=== PATIENT | male | born 1980 | race Caucasian/White ===

== ENCOUNTER → 2018-05-06 | Outpatient (REF) | payer OTHER | LOC: M LAB REF 10:39 | DX: K12.1 Other forms of stomatitis (principal) | CPT/HCPCS: 87070 ==

== ENCOUNTER → 2021-02-25 | Outpatient (REF) | payer OTHER | LOC: M WUC 11:15 | PROVIDERS: ATTEND Physician Assistant | DX: R30.0 Dysuria (principal) ==

== ENCOUNTER → 2021-02-28 | Outpatient (CLI) | payer OTHER, SELFPAY ==
--- NOTE | 2021-02-28 15:43 | REP ---
INDICATION: DYSURIA. COMPARISON: None. TECHNIQUE: AP view abdomen and pelvis. FINDINGS: Moderate fecal material seen throughout the colon. There is no evidence of small bowel obstruction. No abnormal calcifications are seen. Visualized osseous structures are unremarkable. IMPRESSION: Moderate fecal retention. No evidence of small bowel obstruction. No abnormal calcifications. <Electronically signed by Dave Sen > 02/28/21 [id number]
[2021-02-28 19:50] LABS: BASO # 0.1 10^3/uL (0.0-0.2); BASO % 0.6 % (0.0-1.0); EOS # 0.2 10^3/uL (0.0-0.5); EOS % 1.9 % (0.0-3.0); HEMATOCRIT 44.6 % (42.0-52.0); HEMOGLOBIN 14.8 g/dl (13.5-17.5); LYMPH # 1.1 10^3/uL (1.5-5.0); LYMPH % 10.1 % (24.0-44.0); MEAN CORPUSCULAR HEMOGLOBIN 29.7 pg (27.0-33.0); MEAN CORPUSCULAR HGB CONC 33.2 g/dl (32.0-36.5); MEAN CORPUSCULAR VOLUME 89.4 fl (80.0-96.0); MONO % 9.2 % (2.0-8.0); NEUTROPHILS # 8.7 10^3/uL (1.5-8.5); NEUTROPHILS % 77.8 % (36.0-66.0); PLATELET COUNT, AUTOMATED 234 10^3/uL (150-450); RED BLOOD COUNT 4.99 10^6/uL (4.30-6.10); WHITE BLOOD COUNT 11.1 10^3/uL (4.0-10.0)
[2021-02-28 20:00] LABS: ALBUMIN 4.1 GM/DL (3.2-5.2); ALT/SGPT 18 U/L (12-78); BILIRUBIN,TOTAL 1.2 MG/DL (0.2-1.0); BLOOD UREA NITROGEN 8 MG/DL (7-18); CALCIUM LEVEL 9.1 MG/DL (8.5-10.1); CARBON DIOXIDE LEVEL 32 MEQ/L (21-32); CHLORIDE LEVEL 103 MEQ/L (98-107); CREATININE FOR GFR 0.95 MG/DL (0.70-1.30); GLOMERULAR FILTRATION RATE > 60.0 (>60); GLUCOSE, FASTING 101 MG/DL (70-100); POTASSIUM SERUM 4.4 MEQ/L (3.5-5.1); SODIUM LEVEL 140 MEQ/L (136-145); TOTAL PROTEIN 7.8 GM/DL (6.4-8.2)
== END ==
LOC: M WUC 14:59
PROVIDERS: ATTEND Physician Assistant
DX: R30.0 Dysuria (principal)

== ENCOUNTER → 2021-04-13 | Outpatient (REF) | payer SELFPAY | LOC: M WUC 19:49 | PROVIDERS: ATTEND Physician Assistant | DX: R30.0 Dysuria (principal) ==

== ENCOUNTER → 2021-05-13 | Outpatient (REF) | payer OTHER ==
[2021-05-13 12:27] LABS: APPEARANCE, URINE CLEAR (CLEAR); BACTERIA, URINE AUTO NEGATIVE (NEGATIVE); BILIRUBIN, URINE AUTO NEGATIVE (NEGATIVE); BLOOD, URINE BLOOD NEGATIVE (NEGATIVE); COLOR, URINE YELLOW (YELLOW); GLUCOSE, URINE (UA) AUTO NEGATIVE (NEGATIVE); KETONE, URINE AUTO NEGATIVE (NEGATIVE); LEUKOCYTE ESTERASE, URINE AUTO NEGATIVE (NEGATIVE); MUCUS, URINE SMALL (NEGATIVE); NITRITE, URINE AUTO NEGATIVE (NEGATIVE); PROTEIN, URINE AUTO NEGATIVE (NEGATIVE); RBC, URINE AUTO 1 /HPF (0-3); SPECIFIC GRAVITY URINE AUTO 1.024 (1.002-1.035); SQUAMOUS EPITHELIAL CELL UR AU 0 /HPF (0-6); UROBILINOGEN, URINE AUTO 0.2 mg/dL (0.0-2.0); WBC, URINE AUTO 1 /HPF (0-3)
== END ==
LOC: M SMT 11:48
PROVIDERS: ATTEND Urology
DX: N30.01 Acute cystitis with hematuria (principal)

== ENCOUNTER → 2021-05-23 | Outpatient (CLI) | payer OTHER ==
[~2021-05-23] MED LIST: BACT800T5 PO; OXYB5TAB10 PO; PYRI1TAB5 PO
== END ==
LOC: M RAD 11:13
PROVIDERS: ATTEND Urology
DX: N30.01 Acute cystitis with hematuria (principal)

== ENCOUNTER → 2021-05-28 | Outpatient (CLI) | payer OTHER ==
[2021-05-28 13:54] LABS: HEMATOCRIT 45.1 % (42.0-52.0); MEAN CORPUSCULAR HEMOGLOBIN 29.7 pg (27.0-33.0); MEAN CORPUSCULAR HGB CONC 33.3 g/dl (32.0-36.5); MEAN CORPUSCULAR VOLUME 89.3 fl (80.0-96.0); PLATELET COUNT, AUTOMATED 189 10^3/uL (150-450); RED BLOOD COUNT 5.05 10^6/uL (4.30-6.10); WHITE BLOOD COUNT 4.6 10^3/uL (4.0-10.0)
[2021-05-28 16:05] LABS: GC DNA AMPLIFICATION NEGATIVE (NEGATIVE)
== END ==
LOC: M PLALAB 08:33
PROVIDERS: ATTEND Urology
DX: R31.0 Gross hematuria (principal)

== ENCOUNTER → 2021-06-03 | Outpatient (CLI) | payer OTHER ==
[~2021-06-03] MED LIST changes: -BACT800T5 PO; +ISOVUE-370 76% 100ML VIAL As Ordered ONE; -OXYB5TAB10 PO; -PYRI1TAB5 PO
--- NOTE | 2021-06-03 10:55 | REP ---
INDICATION: DYSURIA. Possible nephrolithiasis. COMPARISON: Comparison sonography May 23, 2021. TECHNIQUE: Pre contrast and dual phase post intravenous contrast injected CT abdomen and pelvis acquisitions are acquired. 3 mm axial images are re-formatted. Coronal and sagittal MPR images are provided. The contrast dose is 100 mL of Isovue 370. FINDINGS: Preliminary digital managed care liaison radiograph is unremarkable. Normal bowel gas pattern. The lung bases are clear on axial CT images. There is no evidence of pleural effusion or upper abdominal ascites. The liver and the spleen are normal in size and homogeneous in texture on pre and postcontrast CT acquisitions. Normal adrenal glands are observed. No abnormality is noted in the pancreas or the gallbladder. There is no evidence of hydronephrosis on either side. There is an intrarenal calculus in the upper pole of the right kidney measuring 3 mm in greatest diameter. there is a 2 mm intrarenal calculus in the lower pole of the right kidney. No intrarenal calculi are seen in the left kidney. No ureteral stone or bladder stone is seen. There is some bladder wall thickening along the right lateral and posterior bladder wall. There is a cystic lesion in the right lower pelvis adjacent to the posterolateral wall of the urinary bladder on the right side. This cyst measures 2.4 x 3.0 by 2.2 cm. The it is most compatible with a bladder diverticulum. The ureters describe a normal course to the urinary bladder and the right ureter passes into the bladder superior and medial to this cyst. Prostate the prostate is unremarkable. Seminal vesicles are symmetric. The bladder is otherwise unremarkable. Delayed scan images show no filling defect in the upper tract collecting system on either side and unremarkable ureters. IMPRESSION: 1. Intrarenal nephrolithiasis with 2 calculi in the intrarenal collecting system of the right kidney. No hydronephrosis. 2. Right-sided perivesical 3 cm in greatest diameter, most compatible with bladder diverticulum. There is moderate thickening of the bladder wall posteriorly and on the right side of the urinary bladder. <Electronically signed by Marcello Zuniga > 06/03/21 [id number]
== END ==
LOC: M RAD 07:57
PROVIDERS: ATTEND Urology
DX: R30.0 Dysuria (principal)
CPT/HCPCS: 74178; Q9967

== ENCOUNTER → 2021-06-24 | Outpatient (REF) | payer OTHER ==
[2021-06-24 13:43] LABS: APPEARANCE, URINE CLEAR (CLEAR); BACTERIA, URINE AUTO NEGATIVE (NEGATIVE); BILIRUBIN, URINE AUTO NEGATIVE (NEGATIVE); BLOOD, URINE BLOOD NEGATIVE (NEGATIVE); COLOR, URINE YELLOW (YELLOW); GLUCOSE, URINE (UA) AUTO NEGATIVE (NEGATIVE); KETONE, URINE AUTO NEGATIVE (NEGATIVE); LEUKOCYTE ESTERASE, URINE AUTO NEGATIVE (NEGATIVE); MUCUS, URINE SMALL (NEGATIVE); NITRITE, URINE AUTO NEGATIVE (NEGATIVE); PROTEIN, URINE AUTO NEGATIVE (NEGATIVE); RBC, URINE AUTO 0 /HPF (0-3); SPECIFIC GRAVITY URINE AUTO 1.019 (1.002-1.035); SQUAMOUS EPITHELIAL CELL UR AU 0 /HPF (0-6); WBC, URINE AUTO 0 /HPF (0-3)
== END ==
LOC: M SMT 12:52
PROVIDERS: ATTEND Urology
DX: R30.0 Dysuria (principal)

== ENCOUNTER → 2021-07-09 | Outpatient (CLI) | payer OTHER ==
[2021-07-09 10:54] LABS: HEMATOCRIT 41.5 % (42.0-52.0); HEMOGLOBIN 14.1 g/dl (13.5-17.5); MEAN CORPUSCULAR HEMOGLOBIN 29.6 pg (27.0-33.0); PLATELET COUNT, AUTOMATED 238 10^3/uL (150-450); RED BLOOD COUNT 4.77 10^6/uL (4.30-6.10); WHITE BLOOD COUNT 5.4 10^3/uL (4.0-10.0)
--- NOTE | 2021-07-09 11:06 | REP ---
INDICATION: DYSURIA. COMPARISON: 02/21/2010 TECHNIQUE: PA and lateral FINDINGS: There is a patchy opacity in the right lower lobe. This represents a change from the prior exam. The lung manzo are otherwise clear. The heart is not enlarged. The pleural angles are sharp. The osseous structures stable and intact. IMPRESSION: New patchy opacity in the right lower lobe. Follow-up is recommended. <Electronically signed by Toni Mcgrath > 07/09/21 [id number]
[2021-07-09 11:17] LABS: ALBUMIN 3.4 GM/DL (3.2-5.2); ALT/SGPT 19 U/L (12-78); BLOOD UREA NITROGEN 12 MG/DL (7-18); CARBON DIOXIDE LEVEL 31 MEQ/L (21-32); CHLORIDE LEVEL 104 MEQ/L (98-107); CREATININE FOR GFR 0.85 MG/DL (0.70-1.30); GLOMERULAR FILTRATION RATE > 60.0 (>60); GLUCOSE, FASTING 97 MG/DL (70-100); POTASSIUM SERUM 3.7 MEQ/L (3.5-5.1); SODIUM LEVEL 139 MEQ/L (136-145); TOTAL PROTEIN 7.5 GM/DL (6.4-8.2)
== END ==
LOC: M WUC 08:19
PROVIDERS: ATTEND Urology
DX: R30.0 Dysuria (principal); M32.9 Systemic lupus erythematosus, unspecified

== ENCOUNTER → 2021-07-11 | Outpatient (CLI) | payer OTHER | LOC: M LABSMTC 09:26 | PROVIDERS: ATTEND Anesthesiology | DX: Z01.818 Encounter for other preprocedural examination (principal); Z11.52 Encounter for screening for COVID-19 ==

== ENCOUNTER → 2021-07-11 | Outpatient (CLI) | payer OTHER ==
--- NOTE | 2021-07-12 20:06 | ECGEPIP ---
[facility] Test Date: 2021-07-11 Pat Name: ESME HARMON Department: Room: - Gender: Male Erp Pm: dante : 1980 Requested By: TAO Em Order Number: [id number] Reading MD: Laney Panda Measurements Intervals [place] Rate: 65 P: 46 AR: 164 QRS: 69 QRSD: 88 T: 38 QT: 394 QTc: 409 Interpretive Statements Normal sinus rhythm No prior Electronically Signed on 07-12-2021 20:06:13 EDT by Laney Panda
== END ==
LOC: M EKG 07:35
PROVIDERS: ATTEND Urology
DX: R30.0 Dysuria (principal)

== ENCOUNTER → 2021-08-11 | Outpatient (CLI) | payer OTHER ==
[~2021-08-11] MED LIST changes: +BACT800T5 PO; -ISOVUE-370 76% 100ML VIAL As Ordered ONE; +OXYB5TAB10 PO; +PYRI1TAB5 PO
[2021-08-11 09:55] LABS: APPEARANCE, URINE CLEAR (CLEAR); BACTERIA, URINE AUTO NEGATIVE (NEGATIVE); BILIRUBIN, URINE AUTO NEGATIVE (NEGATIVE); BLOOD, URINE BLOOD NEGATIVE (NEGATIVE); COLOR, URINE YELLOW (YELLOW); GLUCOSE, URINE (UA) AUTO NEGATIVE (NEGATIVE); KETONE, URINE AUTO NEGATIVE (NEGATIVE); LEUKOCYTE ESTERASE, URINE AUTO NEGATIVE (NEGATIVE); MUCUS, URINE SMALL (NEGATIVE); NITRITE, URINE AUTO NEGATIVE (NEGATIVE); PROTEIN, URINE AUTO NEGATIVE (NEGATIVE); RBC, URINE AUTO 0 /HPF (0-3); SPECIFIC GRAVITY URINE AUTO 1.026 (1.002-1.035); SQUAMOUS EPITHELIAL CELL UR AU 0 /HPF (0-6); WBC, URINE AUTO 1 /HPF (0-3)
[2021-08-11 09:56] LABS: HEMATOCRIT 44.7 % (42.0-52.0); MEAN CORPUSCULAR HEMOGLOBIN 29.9 pg (27.0-33.0); MEAN CORPUSCULAR HGB CONC 33.6 g/dl (32.0-36.5); MEAN CORPUSCULAR VOLUME 89.2 fl (80.0-96.0); PLATELET COUNT, AUTOMATED 179 10^3/uL (150-450); RED BLOOD COUNT 5.01 10^6/uL (4.30-6.10); WHITE BLOOD COUNT 5.2 10^3/uL (4.0-10.0)
[2021-08-11 10:55] LABS: ALBUMIN 3.9 GM/DL (3.2-5.2); ALT/SGPT 22 U/L (12-78); BILIRUBIN,TOTAL 0.9 MG/DL (0.2-1.0); BLOOD UREA NITROGEN 14 MG/DL (7-18); CALCIUM LEVEL 9.3 MG/DL (8.5-10.1); CARBON DIOXIDE LEVEL 29 MEQ/L (21-32); CHLORIDE LEVEL 105 MEQ/L (98-107); CREATININE FOR GFR 0.86 MG/DL (0.70-1.30); GLOMERULAR FILTRATION RATE > 60.0 (>60); GLUCOSE, FASTING 102 MG/DL (70-100); POTASSIUM SERUM 4.3 MEQ/L (3.5-5.1); SODIUM LEVEL 141 MEQ/L (136-145)
== END ==
LOC: M WUC 08:21
PROVIDERS: ATTEND Urology
DX: R30.0 Dysuria (principal); N32.9 Bladder disorder, unspecified

== ENCOUNTER → 2021-08-13 | Outpatient (CLI) | payer OTHER | LOC: M LABSMTC 09:23 | PROVIDERS: ATTEND Anesthesiology | DX: Z01.818 Encounter for other preprocedural examination (principal); Z11.52 Encounter for screening for COVID-19 ==

== ENCOUNTER 2021-08-18 07:20 | Day surgery (SDC) | payer OTHER ==
[~2021-08-18] VITALS: Ht 172.7 cm; Wt 68.4 kg
[~2021-08-18 07:20] MED LIST changes: -BACT800T5 PO; +CIPROFLOXACIN 400 MG in IV 1 EA IV ONE; +LR 1,000 ML IV ONE; -OXYB5TAB10 PO; -PYRI1TAB5 PO
--- OUTSIDE RECORDS SUMMARY | 2021-08-18 07:23 | CCD ---
Author Author [facility] Organization [facility] Address Unknown Phone Unavailable Care Team Providers Care Senior Qa Automation Engineer Name Role Phone IRENA, Carrie BHATT PA Unavailable Unavailable LETTIERE, A MILLER PA Unavailable Unavailable LETTIERE, A MILLER PA Unavailable Unavailable LETTIERE, A MILLER PA Unavailable Unavailable LETTIERE, A MILLER PA Unavailable Unavailable LETTIERE, A MILLER PA Unavailable Unavailable LETTIERE, A MILLER PA Unavailable Unavailable LETTIERE, A MILLER PA Unavailable Unavailable LETTIERE, A MILLER PA Unavailable Unavailable LETTIERE, A MILLER PA Unavailable Unavailable LETTIERE, A MILLER PA Unavailable Unavailable LETTIERE, A MILLER PA Unavailable Unavailable LETTIERE, A MILLER PA Unavailable Unavailable LETTIERE, A MILLER PA Unavailable Unavailable LETTIERE, A MILLER PA Unavailable Unavailable LETTIERE, A MILLER PA Unavailable Unavailable LETTIERE, A MILLER PA Unavailable Unavailable LETTIERE, A MILLER PA Unavailable Unavailable LETTIERE, A MILLER PA Unavailable Unavailable LETTIERE, A MILLER PA Unavailable Unavailable LETTIERE, A MILLER PA Unavailable Unavailable LETTIERE, A MILLER PA Unavailable Unavailable LETTIERE, A MILLER PA Unavailable Unavailable LETTIERE, A MILLER PA Unavailable Unavailable LETTIERE, A MILLER PA Unavailable Unavailable LETTIERE, A MILLER PA Unavailable Unavailable LETTIERE, A MILLER PA Unavailable Unavailable LETTIERE, A MILLER PA Unavailable Unavailable LETTIERE, A MILLER PA Unavailable Unavailable LETTIERE, A MILLER PA Unavailable Unavailable LETTIERE, A MILLER PA Unavailable Unavailable Re-disclosure Warning The records that you are about to access may contain information from federally-assisted alcohol or drug abuse programs. If such information is present, then the following federally mandated warning applies: This information has been disclosed to you from records protected by federal confidentiality rules (42 CFR part 2). The federal rules prohibit you from making any further disclosure of this information unless further disclosure is expressly permitted by the written consent of the person to whom it pertains or as otherwise permitted by 42 CFR part 2. A general authorization for the release of medical or other information is NOT sufficient for this purpose. The Federal rules restrict any use of the information to criminally investigate or prosecute any alcohol or drug abuse patient.The records that you are about to access may contain highly sensitive health information, the redisclosure of which is protected by Article 27-F of the [facility] Public Health law. If you continue you may have access to information: Regarding HIV / AIDS; Provided by facilities licensed or operated by the [facility] Office of Mental Health; or Provided by the [facility] Office for People With Developmental Disabilities. If such information is present, then the following [facility] mandated warning applies: This information has been disclosed to you from confidential records which are protected by state law. State law prohibits you from making any further disclosure of this information without the specific written consent of the person to whom it pertains, or as otherwise permitted by law. Any unauthorized further disclosure in violation of state law may result in a fine or skilled nursing sentence or both. A general authorization for the release of medical or other information is NOT sufficient authorization for further disc losure. Family History Family Member Name Family Member Gender Family Member Status Date o f Status Description Data Source(s) Unknown Unknown Problem MEDENT ([facility], [facility]) Encounters Encounter Providers Location Date Indications Data Source(s ) Unknown [address] [facility] [place] [address] 08/04/2021 12:00:00 AM EST eCW1 ([facility]) Unknown [address] [facility] [place] [address] 07/22/2021 12:00:00 AM EST eCW1 ([facility]) Unknown [address] [facility] [place] [address] 06/16/2021 12:00:00 AM EDT eCW1 ([facility]) Outpatient [address] [facility] [address] [address] 05/28/2021 12:00:00 AM EDT eCW1 ([facility]) Outpatient [address] [facility] [address] 05/13/2021 12:00:00 AM EDT eCW1 ([facility]) Outpatient Attender: MILLER angeles 04/13/2021 10:05:00 AM EDT MEDENT ([facility], [facility]) Outpatient Attender: MILLER Galvan Prim karthik 02/28/2021 02:35:00 PM EDT MEDENT ([facility]) Outpatient Attender: MILLER angeles 02/25/2021 09:30:00 AM EDT MEDENT ([facility]) Medications Medication Brand Name Start Date Product Form Dose Route Admi nistrative Instructions Pharmacy Instructions Status Indications Reaction Description Data Source(s) No Active Medications 04/13/2021 12:00:00 AM EDT active MEDENT ([facility]) POLYETHYLENE GLYCOL 3350 142 MG/ML Oral Solution [Miralax] M iralax 02/28/2021 12:00:00 AM EDT completed MEDENT ([facility]) Tamsulosin hydrochloride 0.4 MG Oral Capsule Tamsulosin HCL 02/28/2021 12:00:00 AM EDT completed MEDENT ([facility]) NITROFURANTOIN, MACROCRYSTALS 25 MG / Ni trofurantoin, Monohydrate 75 MG Oral Capsule Nitrofurantoin Monohyd Macro 02/25/2021 12:00:00 AM EDT ORAL completed MEDENT ([facility]) Phenazopyridine hydrochloride 200 MG Delayed Release O ral Tablet Phenazopyridine HCL 02/25/2021 12:00:00 AM EDT ORAL completed MEDENT ([facility]) Insurance Providers Payer name Policy type / Coverage type Policy ID Covered constitution party ID Covered constitution party's relationship to estrada Policy Estrada Plan Information [facility] [id number] SP [id number] [facility] [id number] SP [id number] [facility] [id number] SP [id number] [facility] [id number] SP [id number] SELF PAY SP SELF PAY ONLY 1 SP 1 Problems, Conditions, and Diagnoses Code Display Name Description Problem Type Effective Dates Data Source(s) N32.3 [id number] Bladder diverticulum Problem 06/24/2021 12:0 0:00 AM EDT eCW1 ([facility]) N32.9 [id number] Lesion of bladder Problem 06/24/2021 12:00:0 0 AM EDT eCW1 ([facility]) N20.0 [id number] Kidney stones Problem 05/29/2021 12:00:00 AM EDT eCW1 ([facility]) Surgeries/Procedures Procedure Description Date Indications Data Source(s) OFFICE OUTPATIENT VISIT 15 MINUTES 04/13/2021 12:00:00 AM EDT MEDENT ([facility], [facility]) OFFICE OUTPATIENT VISIT 15 MINUTES 02/28/2021 12:00:00 AM EDT MEDENT ([facility], [facility]) OFFICE OUTPATIENT VISIT 15 MINUTES 02/25/2021 12:00:00 AM EDT MEDENT ([facility], [facility]) Results ID Date Data Source [id number] 08/13/2021 10:30:00 AM EST [facility] Name Value Range Interpretation Code Description Data Marj rce(s) Supporting Document(s) SARS-CoV-2 (COVID-19) RNA [Presence] in Respiratory specimen by MAGDIEL with probe detection Not Detected [facility] This lab was ordered by [facility] and reported by [employer]. ID Date Data Source CHLAMYDIA, GC and TRICH AMP 05/28/2021 12:00:00 AM EDT eCW1 ([facility]) Name Value Range Interpretation Code Description Data Marj rce(s) Supporting Document(s) NOT DETECTED NEGATIVE Trichomonas vaginalis ( AMP) eCW1 ([facility]) ID Date Data Source CBC - Complete Blood Count 05/28/2021 12:00:00 AM EDT eCW1 ( [facility]) Name Value Range Interpretation Code Description Data Marj rce(s) Supporting Document(s) 4.6 4.0-10.0 WHITE BLOOD COUNT eCW1 ([facility]) 5.05 4.30-6.10 RED BLOOD COUNT eCW1 ([facility]) 45.1 42.0-52.0 HEMATOCRIT eCW1 ([facility]) 15.0 13.5-17.5 HEMOGLOBIN eCW1 ([facility]) 33.3 32.0-36.5 MEAN CORPUSCULAR HGB CONC eCW1 ([facility]) 29.7 27.0-33.0 MEAN CORPUSCULAR HEMOGLOB IN eCW1 ([facility]) 89.3 80.0-96.0 MEAN CORPUSCULAR VOLUME e CW1 ([facility]) 189 150-450 PLATELET COUNT, AUTOMATED eCW1 ([facility]) 12.7 11.5-14.5 RED CELL DISTRIBUTION WID TH eCW1 ([facility]) ID Date Data Source BLADDER U/S 05/23/2021 12:00:00 AM EDT eCW1 ([facility]) Name Value Range Interpretation Code Description Data Marj rce(s) Supporting Document(s) BLADDER U/S eCW1 (Replaced by [facility]) ID Date Data Source RENAL ULTRASOUND 05/23/2021 12:00:00 AM EDT eCW1 ([facility]) Name Value Range Interpretation Code Description Data Marj rce(s) Supporting Document(s) RENAL ULTRASOUND eCW1 ([facility]) ID Date Data Source URINE CULTURE 05/13/2021 12:00:00 AM EDT eCW1 ([facility]) Name Value Range Interpretation Code Description Data Marj rce(s) Supporting Document(s) URINE CULTURE eCW1 ([facility]) ID Date Data Source UA URINALYSIS 05/13/2021 12:00:00 AM EDT eCW1 ([facility]) Name Value Range Interpretation Code Description Data Marj rce(s) Supporting Document(s) UA URINALYSIS eCW1 ([facility]) ID Date Data Source [id number] 04/13/2021 10:26:00 AM EDT MEDENT ([facility], [facility]) Name Value Range Interpretation Code Description Data Marj rce(s) Supporting Document(s) Bacteria identified in Urine by Culture Laboratory test result MEDENT ([facility], [facility]) FULL REPORT IN LAB NOTES (eCW and Medent ). NO GROWTH ID Date Data Source [id number] 02/28/2021 03:13:00 PM EDT MEDENT ([facility], [facility]) Name Value Range Interpretation Code Description Data Marj rce(s) Supporting Document(s) Glucose, Fasting 101 mg/dL 70-100 MEDENT ([facility], [facility]) Creatinine For GFR 0.95 mg/dL 0.70-1.30 MEDENT ([facility], [facility]) Blood Urea Nitrogen 8 mg/dL 7-18 MEDENT ([facility], [facility]) Sodium Level 140 meq/L 136-145 MEDENT ([facility], [facility]) Glomerular Filtration Rate Laboratory test result MEDENT ([facility]) <content>Units are mL/min/1.73 m2</content>
<content></content>
<content>Chronic Kidney Disease Staging per NKF:</content>
<content></content>
<content>Stage I & II GFR >=60 Normal to Mildly Decreased</content>
<content>Stage III GFR 30- 59 Moderately Decreased</content>
<content>Stage IV GFR 15-29 Severely Decreased</content>
<content>Stage V GFR <15 Very Little GFR Left</content>
<content>ESRD GFR <15 on MANAGER HEART FAILURE</content>
<content></content> Chloride Level 103 meq/L 98-107 MEDENT ([facility], [facility]) Potassium Serum 4.4 meq/L 3.5-5.1 MEDENT ([facility], [facility]) Testing was performed on a SLIGHTLY hemo lyzed specimen. Suggest recollection of specimen for more accurate test results. Carbon Dioxide Level 32 meq/L 21-32 [facility] ( [facility]) Anion Gap 5 meq/L 8-16 MEDENT ([facility], [facility]) Calcium Level 9.1 mg/dL 8.5-10.1 MEDENT ([facility], [facility]) Ast/Sgot 16 U/L 7-37 MEDENT ([facility], [facility]) Alt/SGPT 18 U/L 12-78 MEDENT ([facility], [facility]) Alkaline Phosphatase 75 U/L 45-117 MEDENT ([facility], [facility]) Bilirubin,Total 1.2 mg/dL 0.2-1.0 MEDENT ([facility], [facility]) Total Protein 7.8 GM/DL 6.4-8.2 MEDENT ([facility], [facility]) Albumin 4.1 GM/DL 3.2-5.2 MEDENT ([facility], [facility]) Albumin/Globulin Ratio 1.1 MEDENT ([facility], [facility]) ID Date Data Source [id number] 02/28/2021 03:13:00 PM EDT MEDENT ([facility]) Name Value Range Interpretation Code Description Data Marj rce(s) Supporting Document(s) Hemoglobin 14.8 g/dL 13.5-17.5 MEDENT ([facility], [facility]) White Blood Count 11.1 10 4.0-10.0 MEDENT ([facility], [facility]) Red Blood Count 4.99 10 4.30-6.10 MEDENT ([facility], [facility]) Hematocrit 44.6 % 42.0-52.0 MEDENT ([facility], [facility]) Mean Corpuscular Volume 89.4 fl 80.0-96.0 M EDENT ([facility], [facility]) Mean Corpuscular HGB Conc 33.2 g/dL 32.0-36.5 MEDENT ([facility], [facility]) Mean Corpuscular Hemoglobin 29.7 pg 27.0-33.0 MEDENT ([facility], [facility]) Platelet Count, Automated 234 10 150-450 MEDENT ([facility], [facility]) Red Cell Distribution Width 11.9 % 11.5-14.5 MEDENT ([facility], [facility]) Neutrophils % 77.8 % 36.0-66.0 MEDENT ([facility], [facility]) Lymph % 10.1 % 24.0-44.0 MEDENT ([facility], [facility]) Eos % 1.9 % 0.0-3.0 MEDENT ([facility], [facility]) [place] % 9.2 % 2.0-8.0 MEDENT ([facility], [facility]) Baso % 0.6 % 0.0-1.0 MEDENT ([facility], [facility]) Neutrophils # 8.7 10 1.5-8.5 MEDENT ([facility], [facility]) Immature Granulocyte % 0.4 % 0-3.0 MEDENT ([facility], [facility]) Nucleated Red Blood Cell % 0.0 % 0-0 MED ENT ([facility], [facility]) Lymph # 1.1 10 1.5-5.0 MEDENT ([facility], [facility]) [place] # 1.0 10 0.0-0.8 MEDENT ([facility], [facility]) Eos # 0.2 10 0.0-0.5 MEDENT ([facility], [facility]) Baso # 0.1 10 0.0-0.2 MEDENT ([facility], [facility]) ID Date Data Source [id number] 02/28/2021 02:45:00 PM EDT MEDENT ([facility], [facility]) Name Value Range Interpretation Code Description Data Marj rce(s) Supporting Document(s) Trichomonas vaginalis rRNA [Presence] in Unspecified specimen by Probe and target amplification method Laboratory test result MEDENT ([facility], [facility]) trich pending 03-04-21 ID Date Data Source [id number] 02/28/2021 02:45:00 PM EDT MEDENT ([facility]) Name Value Range Interpretation Code Description Data Marj rce(s) Supporting Document(s) Bacteria identified in Urine by Culture Laboratory test result MEDENT ([facility]) trich pending 03-04-21 ID Date Data Source [id number] 03/04/2021 04:06:00 PM EDT [facility] Name Value Range Interpretation Code Description Data Marj rce(s) Supporting Document(s) Trich vag by MAGDIEL [facility] TESTS RESULT FLAG UNI TS REF RANGE LAB Trich vag by MAGDIEL Negative (Negative) 01 FLAG LEGEND: L-Low Normal,H-High Normal,LL-Alert Low,HH-Alert High <-Panic Low,>-Panic High,A-Abnormal,AA-Critical Abnormal Performed at:[address] RN [facility] [address] [address] Ruth Blakely MD, ID Date Data Source [id number] 02/25/2021 09:42:00 AM EDT MEDENT ([facility]) Name Value Range Interpretation Code Description Data Marj e(s) Supporting Document(s) Bacteria identified in Urine by Culture Laboratory test result MEDENT ([facility]) FULL REPORT IN LAB NOTES (eCW and Medent ). NO GROWTH CLINICAL SIGNIFICANCE 2 OR MORE ORGANISMS Procedure Social History Code Duration Value Status Description Data Source(s ) Smoking 06/24/2021 12:00:00 AM EDT Never Smoker completed Never S moker eCW1 ([facility]) Smoking 06/24/2021 12:00:00 AM EDT Never Smoker completed Never S moker eCW1 ([facility]) Smoking 05/28/2021 12:00:00 AM EDT Never Smoker completed Never S moker eCW1 ([facility]) Smoking 05/28/2021 12:00:00 AM EDT Never Smoker completed Never S moker eCW1 ([facility]) Smoking 05/28/2021 12:00:00 AM EDT Never Smoker completed Never S moker eCW1 ([facility]) Smoking 04/13/2021 12:00:00 AM EDT Patient has never smoked co mpleted Patient has never smoked MEDENT ([facility], [facility]) Vital Signs ID Date Data Source UNK Name Value Range Interpretation Code Description Data Source(s) Respiratory rate 18 /min 18 /min eCW1 ([facility]) Body weight 155 [lb_av] 155 [lb_av] eCW1 ([facility]) Body temperature 97.5 [degF] 97.5 [degF] eCW1 ( [facility]) Body height 67 [in_i] 67 [in_i] eCW1 ([facility]) Body mass index (BMI) [Ratio] 24.27 kg/m2 24.27 kg/m2 eCW1 ([facility]) Systolic blood pressure 110 mm[Hg] 110 mm[Hg] e CW1 ([facility]) Heart rate 76 /min 76 /min eCW1 ([facility]) Diastolic blood pressure 68 mm[Hg] 68 mm[Hg] eCW1 ([facility]) Diastolic blood pressure 62 mm[Hg] 62 mm[Hg] eCW1 ([facility]) Body weight 150 [lb_av] 150 [lb_av] eCW1 ([facility]) Body weight 68.04 kg 68.04 kg eCW1 ([facility]) Body height 67 [in_i] 67 [in_i] eCW1 ([facility]) Body mass index (BMI) [Ratio] 23.49 kg/m2 23.49 kg/m2 eCW1 ([facility]) Heart rate 78 /min 78 /min eCW1 ([facility]) Respiratory rate 18 /min 18 /min eCW1 ([facility]) Body temperature 97.8 [degF] 97.8 [degF] eCW1 ( [facility]) Systolic blood pressure 102 mm[Hg] 102 mm[Hg] e CW1 ([facility]) Systolic blood pressure 111 mm[Hg] 111 mm[Hg] M EDENT ([facility], [facility]) Diastolic blood pressure 74 mm[Hg] 74 mm[Hg] MEDENT ([facility], [facility]) Heart rate 71 /min 71 /min MEDENT ([facility], [facility]) Respiratory rate 14 /min 14 /min MEDENT ( [facility], [facility]) Oxygen saturation in Arterial blood by Pulse oximetry 99 % 99 % MEDENT ([facility], [facility]) Body temperature 97.8 [degF] 97.8 [degF] MEDENT ([facility], [facility]) Body weight 130.00 [lb_av] 130.00 [lb_av] MEDEN T ([facility], [facility]) Body height 68 [in_i] 68 [in_i] MEDENT ([facility], [facility]) 5'8" Body mass index (BMI) [Ratio] 19.8 kg/m2 19.8 k g/m2 MEDENT ([facility], [facility]) Systolic blood pressure 108 mm[Hg] 108 mm[Hg] M EDENT ([facility], [facility]) Diastolic blood pressure 73 mm[Hg] 73 mm[Hg] MEDENT ([facility], [facility]) Heart rate 83 /min 83 /min MEDENT ([facility]) Respiratory rate 14 /min 14 /min MEDENT ( [facility], [facility]) Oxygen saturation in Arterial blood by Pulse oximetry 98 % 98 % MEDENT ([facility], [facility]) Body temperature 99.1 [degF] 99.1 [degF] MEDENT ([facility], [facility]) Body weight 130.00 [lb_av] 130.00 [lb_av] MEDEN T ([facility], [facility]) Body height 68 [in_i] 68 [in_i] [facility] ([facility], [facility]) 5'8" Body mass index (BMI) [Ratio] 19.8 kg/m2 19.8 k g/m2 MEDENT ([facility], [facility]) Respiratory rate 12 /min 12 /min [facility] ( [facility]) Oxygen saturation in Arterial blood by Pulse oximetry 99 % 99 % [facility] ([facility], [facility]) Systolic blood pressure 108 mm[Hg] 108 mm[Hg] M EDENT ([facility], [facility]) Diastolic blood pressure 75 mm[Hg] 75 mm[Hg] MEDENT ([facility], [facility]) Heart rate 78 /min 78 /min [facility] ([facility], [facility]) Body temperature 97.8 [degF] 97.8 [facility]degF] [facility] Body weight 135.00 [lb_av] 135.00 [lb_av] MEDEN T ([facility], [facility]) Body height 68 [in_i] 68 [in_i] [facility] ([facility], [facility]) 5'8" Body mass index (BMI) [Ratio] 20.5 kg/m2 20.5 k g/m2 [facility] ([facility], [facility])
--- OUTSIDE RECORDS SUMMARY | 2021-08-18 07:23 | CCD ---
Author Author [facility] Organization [facility] Address Unknown Phone Unavailable Care Team Providers Care Metal Mockup Maker Name Role Phone AgnieszkaLiban friedman Unavailable PROBLEMS Type Condition ICD9-CM Code [id number] Code Onset Dates Condition S tatus W/U Status Risk SNOMED Code Notes Problem Kidney stones N20.0 Active confirmed 515507 07 ALLERGIES No Known Allergies ENCOUNTERS from 1980 to 2021-06-05 Encounter Location Date Provider Diagnosis [facility] Urology [address] [phone] [place] [address] May, Liban Gill Dysuria R30.0 ; Gross hematuria R31.0 ; Kidney stones N20.0 and Pelvic mass R19.00 IMMUNIZATIONS No Information SOCIAL HISTORY Tobacco Use: Social History Observation Description Date Details (start date - stop date) Never Smoker Sex Assigned At : Social History Observation Description Sex Assigned At Unknown Language: Question Answer Notes Languages spoken: Chadian Sexual Hx: Question Answer Notes Had sex in the last 12 months (vaginal, oral, or anal)? Yes Have you ever had an STD? No Prevention Strategies discussed: Other with Women only Use protection? No Alcohol Screening: Question Answer Notes Did you have a drink containing alcohol in the past year? Ye s Points 1 Interpretation Negative How often did you have six or more drinks on one occas ion in the past year? Never (0 points) How many drinks did you have on a typica l day when you were drinking in the past year? 1 or 2 (0 points) How often did you have a drink containing alcohol in t he past year? Monthly or less (1 point) Tobacco Use: Question Answer Notes Are you a: never smoker REASON FOR REFERRAL No Information VITAL SIGNS Weight 155 lbs May, Height 67 in May, BMI 24.27 kg/m2 May, Heart Rate 76 /min May, Respiratory Rate 18 /min May, Temperature 97.5 degrees Fahrenheit May, Oximetry 98 May, Blood pressure systolic 110 mm Hg May, Blood pressure diastolic 68 mm Hg May, MEDICATIONS No Known Medications PROCEDURES No Information RESULTS Component Value Reference Range CBC - Complete Blood Count Reviewed date:05/29/2021 11:22:24 Interpretation: Performing Lab:[facility] LABORATORY [address] [address] , ,[place] [address] WHITE BLOOD COUNT 4.6 4.0-10.0 RED BLOOD COUNT 5.05 4.30-6.10 HEMOGLOBIN 15.0 13.5-17.5 HEMATOCRIT 45.1 42.0-52.0 MEAN CORPUSCULAR VOLUME 89.3 80.0-96.0 MEAN CORPUSCULAR HEMOGLOBIN 29.7 27.0-33.0 MEAN CORPUSCULAR HGB CONC 33.3 32.0-36.5 RED CELL DISTRIBUTION WIDTH 12.7 11.5-14.5 PLATELET COUNT, AUTOMATED 189 150-450 CHLAMYDIA, GC and TRICH AMP Reviewed date:05/29/2021 11:22:35 Interpretation: Performing Lab:[facility] LABORATORY [address] [address] , ,[place] [address] Trichomonas vaginalis (AMP) NOT DETECTED NEGATIVE REASON FOR VISIT 2 wk f/u MEDICAL (GENERAL) HISTORY Type Description Date Surgical History No Surgical history information Goals Section No Information Health Concerns No Information MEDICAL EQUIPMENT No Information MENTAL STATUS No Information FUNCTIONAL STATUS No Information ASSESSMENTS Encounter Date Diagnosis Assessment Notes Treatment Notes Treatm ent Clinical Notes May, Dysuria (ICD-10 - R30.0) May, Gross hematuria (ICD-10 - R31.0) May, Kidney stones (ICD-10 - N20.0) May, Pelvic mass (ICD-10 - R19.00) PLAN OF TREATMENT Treatment Notes Test Name Order Date CT Scan : Urogram (Abdomen/Pelvis) 2021-05-28 Next Appt Details Local cystoscopy Reason:Gross hematuria and dysuria Provider Name:Liban Butler Jairo, 2021-06-06 9 08:45:00 AM, [address], , [place], [address], Follow Up:Local cystoscopyGross hematuria and dysuria Insurance Providers Payer Name Payer Address Payer Phone Insured Name Patient Relati onship to Insured Coverage Start Date Coverage End Date [facility] CORPORATE CLAIMS DEPT [address] [facility] [phone] ESME HARMON self
--- OUTSIDE RECORDS SUMMARY | 2021-08-18 07:23 | CCD ---
Author Author [facility] Organization [facility] Address Unknown Phone Unavailable Care Team Providers Care Mobile Health Vehicle Operator Name Role Phone Agnieszkaelder Liban Unavailable PROBLEMS Type Condition ICD9-CM Code [id number] Code Onset Dates Condition S tatus W/U Status Risk SNOMED Code Notes Problem Kidney stones N20.0 Active confirmed 400160 07 ALLERGIES No Known Allergies ENCOUNTERS from 1980 to 2021-06-16 Encounter Location Date Provider Diagnosis [facility] Urology [address] [phone] [place] [address] Jun, Liban Gill IMMUNIZATIONS No Information SOCIAL HISTORY Tobacco Use: Social History Observation Description Date Details (start date - stop date) Never Smoker Sex Assigned At : Social History Observation Description Sex Assigned At Unknown Language: Question Answer Notes Languages spoken: Danish Sexual Hx: Question Answer Notes Had sex [...] REASON FOR REFERRAL No Information VITAL SIGNS No information MEDICATIONS No Information PROCEDURES No Information RESULTS No Results REASON FOR VISIT 06/24/2021 appt MEDICAL (GENERAL) HISTORY Type Description Date Surgical History No Surgical history information Goals Section No Information Health Concerns No Information MEDICAL EQUIPMENT No Information MENTAL STATUS No Information FUNCTIONAL STATUS No Information ASSESSMENTS No Information PLAN OF TREATMENT Next Appt Details Provider Name:Liban Gill, 2021-06-06 9 08:45:00 AM, [address], , [place], [address], Insurance Providers Payer Name Payer Address Payer Phone Insured Name Patient Relati onship to Insured Coverage Start Date Coverage End Date [facility] CORPORATE CLAIMS DEPT [address] [facility] [phone] ESME HARMON self
--- OUTSIDE RECORDS SUMMARY | 2021-08-18 07:23 | CCD ---
Author Author [facility] Organization [facility] Address Unknown Phone Unavailable Care Team Providers Care Self Contained Behavior Unit Teacher Name Role Phone Agnieszkaelder Liban Unavailable PROBLEMS Type Condition ICD9-CM Code [id number] Code Onset Dates Condition S tatus W/U Status Risk SNOMED Code Notes Problem Kidney stones N20.0 Active confirmed 436295 07 ALLERGIES No Known Allergies ENCOUNTERS from 1980 to 2021-06-06 Encounter Location Date Provider Diagnosis [facility] Urology [address] [phone] [place] [address] May, 2021 Liban Gill Acute cystitis with hematuria N30.01 and Dysuria R30.0 IMMUNIZATIONS No Information SOCIAL HISTORY Tobacco Use: Social History Observation Description Date Details (start date - stop date) Never Smoker Sex Assigned At : Social History Observation Description Sex Assigned At Unknown Language: Question Answer Notes Languages spoken: Setswana Sexual Hx: Question Answer Notes Had sex [...] FOR REFERRAL No Information VITAL SIGNS Weight 150 lbs May, Weight-kg 68.04 kg May, Height 67 in May, BMI 23.49 kg/m2 May, Heart Rate 78 /min May, Respiratory Rate 18 /min May, Temperature 97.8 degrees Fahrenheit May, Oximetry 100 May, Blood pressure systolic 102 mm Hg May, Blood pressure diastolic 62 mm Hg May, MEDICATIONS No Known Medications PROCEDURES No Information RESULTS Component Value Reference Range UA URINALYSIS Reviewed date:05/15/2021 11:26:41 Interpretation: Performing Lab:[facility] LABORATORY [address] [address] , ,[place] [address] URINE CULTURE Reviewed date:05/15/2021 11:26:29 Interpretation: Performing Lab:[facility] LABORATORY [address] [id number] , ,[place] [address] RENAL ULTRASOUND Reviewed date:05/27/2021 11:27:57 Interpretation: Performing Lab:[facility] [place] [address] BLADDER U/S Reviewed date:05/27/2021 11:27:51 Interpretation: Performing Lab:[facility] [place] [address] REASON FOR VISIT UTI MEDICAL (GENERAL) HISTORY Type Description Date Surgical History No Surgical history information Goals Section No Information Health Concerns No Information MEDICAL EQUIPMENT No Information MENTAL STATUS No Information FUNCTIONAL STATUS No Information ASSESSMENTS Encounter Date Diagnosis Assessment Notes Treatment Notes Treatm ent Clinical Notes May, Acute cystitis with hematuria (ICD-10 - N30.01) May, Dysuria (ICD-10 - R30.0) PLAN OF TREATMENT Next Appt Details Follow-up after kidney and bladder ultra sound Reason:UTI Provider Name:Liban Gill, 2021-06-06 9 08:45:00 AM, [address], , [place], [address], Follow Up:Follow-up after kidney and bladder ultrasoundUTI Insurance Providers Payer Name Payer Address Payer Phone Insured Name Patient Relati onship to Insured Coverage Start Date Coverage End Date [facility] CORPORATE CLAIMS DEPT [address] [facility] [phone] ES[place] HARMON self
--- OUTSIDE RECORDS SUMMARY | 2021-08-18 07:23 | CCD ---
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 221160333 Problem Kidney stones N20.0 Active confirmed 291818 07 ALLERGIES No Known Allergies ENCOUNTERS from 1980 to 2021-08-04 Encounter Location Date Provider Diagnosis [facility] Urology [address] [phone] [place] [address] Jul, Liban Gill IMMUNIZATIONS No Information SOCIAL HISTORY Tobacco Use: Social History Observation Description Date Details (start date - stop date) Never Smoker Sex Assigned At : Social History Observation Description Sex Assigned At Unknown Language: Question Answer Notes Languages spoken: Kenyan Sexual Hx: Question Answer Notes Had sex [...] Information RESULTS No Results REASON FOR VISIT No Information MEDICAL (GENERAL) HISTORY Type Description Date Medical History PAINFUL URINATION Surgical History CYSTO 06/24/21 Goals Section No Information Health Concerns No Information MEDICAL EQUIPMENT No Information MENTAL STATUS No Information FUNCTIONAL STATUS No Information ASSESSMENTS No Information PLAN OF TREATMENT Next Appt Details Provider Name:Liban Gill, 2020-12-2 1 11:00:00 AM, [address], , [place], [address], Insurance Providers Payer Name Payer Address Payer Phone Insured Name Patient Relati onship to Insured Coverage Start Date Coverage End Date [facility]NON [facility]ICAID MANAGED CARE) CORPORATE CLAIMS DEPT [address] [facility] [phone] ESME HARMON self
--- OUTSIDE RECORDS SUMMARY | 2021-08-18 07:23 | CCD ---
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 Urology [address] [phone] [place] [address] Jul, Liban Gill IMMUNIZATIONS No Information SOCIAL HISTORY Tobacco Use: Social History Observation Description Date Details (start date - stop date) Never Smoker Sex Assigned At : Social History Observation Description Sex Assigned At Unknown Language: Question Answer Notes Languages spoken: Cypriot Sexual Hx: Question Answer Notes Had sex [...] Provider Name:Liban Gill, 2020-12-2 1 11:00:00 AM, [address], , [place], [address], Insurance Providers Payer Name Payer Address Payer Phone Insured Name Patient Relati onship to Insured Coverage Start Date Coverage End Date [facility] (NON MEDICAID MANAGED C[facility]) CORPORATE CLAIMS DEPT [address] [facility] [phone] ESME HARMON self
[2021-08-18] MEDS ORDERED: LIDOCAINE 2% 100MG/5ML SDV (FOR ANES.) As Ordered ONE (07:58)
[2021-08-18] MEDS ORDERED: propofoL 200 MG/20 ML VIAL As Ordered ONE (07:58)
[2021-08-18] MEDS ORDERED: ROCURONIUM BROMIDE 50 MG/5 ML VIAL As Ordered ONE (07:58)
[2021-08-18] MEDS ORDERED: MIDAZOLAM INJ 2MG/2ML VIAL (J2250 PER 1MG) As Ordered ONE (07:59)
[2021-08-18] MEDS ORDERED: ONDANSETRON 4MG/2ML VIAL As Ordered ONE (07:59)
[2021-08-18] MEDS ORDERED: dexameTHASONE 4 MG/ML 1ML VIAL (J1100 PER 1MG) As Ordered ONE (07:59)
[2021-08-18] MEDS ORDERED: fentaNYL 100 MCG/2 ML INJECTION (J3010) As Ordered ONE (07:59)
[2021-08-18] MEDS ORDERED: ACETAMINOPHEN 1000MG 100ML IV BTL (OFIRMEV) (J0131 PER 10MG) As Ordered ONE (09:23)
--- NOTE | 2021-08-18 09:26 | ROOPDOC ---
[facility] Report Of Operation Report of Operation DATE OF PROCEDURE: 08/18/21 PREPROCEDURE DIAGNOSES: [bladder lesions, dysuria]. POSTPROCEDURE DIAGNOSES: [Same]. PROCEDURE PERFORMED: [turbt >5cm and fulguration of remaining lesions]. SURGEON: [Zulma White MD DIRECTOR HYDROGEN STORAGE ENGINEERING: [None], ANESTHESIA: [general]. ESTIMATED BLOOD LOSS: Approximately [minimal] mL. COMPLICATIONS: [None]. REMARKS: [41yo wm with dysuria. Burning at end of voiding. Cystoscopy in the office demonstrated bladder lesions, ? etiology. Today's surgery arranged. Risks discussed including infection, pain, bleeding, scarring, injury to gu tract, perforation of bladder, risks of anesthesia and others.]. FINDINGS: [several erythematous, slightly raised lesions that didn't resemble simple edema] SPECIMENS REMOVED: [Biopsies labeled right, right #2, and right floor] PROCEDURE NOTE: . DESCRIPTION OF PROCEDURE: [I met with the patient in the preop area and again discussed surgery. Questions answered. He wished to proceed. Patient brought to the OR room. General anesthesia was secured. Dorsolithotomy position. We ll-padded. Prepped and draped in the usual sterile fashion. Surgery done under antimicrobial coverage. Timeout performed. Rigid cystoscopy performed. Urethra normal, including prostatic urethra. Bladder thoroughly inspected. There were several erythematous slightly raised areas that looked worrisome. No papillary lesions. Most of the erythematous areas were on the right side. My concern was carcinoma in situ. Urine was collected for cytology. I swapped the rigid cystoscope for a resectoscope. With a loop I resected several areas. Tissue was handed off and labeled right bladder, right bladder #2 and right floor. I believe muscle was included in some of the bites. The tissue labeled right floor was just lateral to the right ureteral orifice. This tissue resembled edema more so than carcinoma in situ. Hemostasis was secured using a button. Using the button the remaining lesions were fulgurated. TURBT greater than 5 cm. Fulgurated just as much as well. Once satisfied at the bladder was emptied and the resectoscope was removed. Patient tolerated surgery well left the room in satisfactory condition. Digital rectal examination revealed a benign feeling gland.]. TAO WHITE MD Aug 18, 2021 09:26
[2021-08-18] MEDS ORDERED: SUGAMMADEX SODIUM 500 MG/5 ML VIAL (BRIDION) As Ordered ONE (09:56)
[2021-08-18] MEDS ORDERED: OXYB5TAB10 PO (10:15)
[2021-08-18] MEDS ORDERED: BACT800T5 PO (10:15)
[2021-08-18] MEDS ORDERED: PYRI1TAB5 PO (10:15)
[2021-08-18] MEDS ORDERED: PERCOCET 5MG/325MG TAB PO PRN (10:30)
[2021-08-18] MEDS ORDERED: fentaNYL 100 MCG/2 ML INJECTION (J3010) IV PRN (10:30)
[2021-08-18] MEDS ORDERED: ONDANSETRON 4MG/2ML VIAL IV PRN (10:30)
[2021-08-18] MEDS ORDERED: METOCLOPRAMIDE INJ 10MG/2ML VIAL (J2765 PER 1) IV PRN (10:30)
[2021-08-18] MEDS ORDERED: LR 1,000 ML IV SCH ×2 (10:30→10:35)
[2021-08-18 12:25] VITALS: BP 113/67
== END 2021-08-18 12:25 | disposition home or self-care (01) ==
LOC: M SDC 07:20
PROVIDERS: ATTEND Urology
DX: N32.9 Bladder disorder, unspecified (principal); R30.0 Dysuria; Z86.16 Personal history of COVID-19
CPT/HCPCS: 52240; 88108; 88305; C1769; J0131; J0744; J1100; J2250; J2405; J3010

== ENCOUNTER → 2021-09-26 | Outpatient (CLI) | payer OTHER ==
[~2021-09-26] MED LIST changes: +BACT800T5 PO; -CIPROFLOXACIN 400 MG in IV 1 EA IV ONE; -LR 1,000 ML IV ONE; +OXYB5TAB10 PO; +PYRI1TAB5 PO
== END ==
LOC: M WUC 08:03
PROVIDERS: ATTEND Urology
DX: R93.89 Abnormal findings on diagnostic imaging of other specified body structures (principal)

== ENCOUNTER → 2021-11-14 | Outpatient (REF) | payer OTHER ==
[2021-11-14 14:00] LABS: APPEARANCE, URINE CLEAR (CLEAR); BACTERIA, URINE AUTO NEGATIVE (NEGATIVE); BILIRUBIN, URINE AUTO NEGATIVE (NEGATIVE); BLOOD, URINE BLOOD NEGATIVE (NEGATIVE); COLOR, URINE YELLOW (YELLOW); GLUCOSE, URINE (UA) AUTO NEGATIVE (NEGATIVE); KETONE, URINE AUTO NEGATIVE (NEGATIVE); LEUKOCYTE ESTERASE, URINE AUTO NEGATIVE (NEGATIVE); MUCUS, URINE SMALL (NEGATIVE); NITRITE, URINE AUTO NEGATIVE (NEGATIVE); PROTEIN, URINE AUTO NEGATIVE (NEGATIVE); RBC, URINE AUTO 2 /HPF (0-3); SPECIFIC GRAVITY URINE AUTO 1.016 (1.002-1.035); SQUAMOUS EPITHELIAL CELL UR AU 0 /HPF (0-6); WBC, URINE AUTO 0 /HPF (0-3)
== END ==
LOC: M SMT 12:52
PROVIDERS: ATTEND Urology
DX: N32.9 Bladder disorder, unspecified (principal)

== ENCOUNTER → 2021-12-24 | Outpatient (REF) | payer OTHER ==
[2021-12-24 13:39] LABS: APPEARANCE, URINE CLEAR (CLEAR); BACTERIA, URINE AUTO NEGATIVE (NEGATIVE); BILIRUBIN, URINE AUTO NEGATIVE (NEGATIVE); BLOOD, URINE BLOOD NEGATIVE (NEGATIVE); COLOR, URINE YELLOW (YELLOW); GLUCOSE, URINE (UA) AUTO NEGATIVE (NEGATIVE); KETONE, URINE AUTO NEGATIVE (NEGATIVE); LEUKOCYTE ESTERASE, URINE AUTO NEGATIVE (NEGATIVE); MUCUS, URINE SMALL (NEGATIVE); NITRITE, URINE AUTO NEGATIVE (NEGATIVE); PROTEIN, URINE AUTO NEGATIVE (NEGATIVE); RBC, URINE AUTO 0 /HPF (0-3); SPECIFIC GRAVITY URINE AUTO 1.018 (1.002-1.035); SQUAMOUS EPITHELIAL CELL UR AU 0 /HPF (0-6); UROBILINOGEN, URINE AUTO 0.2 mg/dL (0.0-2.0); WBC, URINE AUTO 0 /HPF (0-3)
== END ==
LOC: M SMT 13:07
PROVIDERS: ATTEND Urology
DX: N32.9 Bladder disorder, unspecified (principal)

== ENCOUNTER → 2022-01-06 | Outpatient (CLI) | payer OTHER | LOC: M WUC 08:14 | PROVIDERS: ATTEND Internal Medicine | DX: R10.30 Lower abdominal pain, unspecified (principal) ==